=== PATIENT | male | born 1995 | race Caucasian/White ===

== ENCOUNTER 2017-01-13 14:24 | Emergency (ER) | payer BC ==
--- NOTE | ~2017-01-13 | CT2 ---
[facility] A Service of [facility] RADIOLOGY TEXT RESULTS PATIENT: NIKIA EMERY LOCATION: SED : 94 UNIT #: [id number] AGE: [address]: Himanshu Pearce MD SEX: M ORDER DR: [id number] [place] [id number] E MR#: [id number] Acc #: [id number] NAME: NIKIA EMERY. : 1995 SEX: M STUDY DATE/TIME: 01/13/2017 14:40 UNIT: SED ROOM: STUDY DESCRIPTION: CT Abd and Pelv W Cont Attending Physician: Himanshu Pearce M.D. Referring Physician: Himanshu Pearce M.D. Ordering Physician: Himanshu Pearce M.D. Primary Care Physician: Sofía Parsons M.D. MEDICAL IMAGING REPORT This report is preliminary unless electronic signature is present. EXAM CT abdomen and pelvis with IV contrast HISTORY Blood in stool for 10 days. Low abdomen pain. TECHNIQUE This CT exam was performed with one or more of the following radiation dose reduction techniques: automatic control, adjustment of mA and/or kV according to patient size, and iterative reconstruction. FINDINGS CT abdomen and pelvis was performed with IV contrast. CT ABDOMEN: The liver, gallbladder, spleen, pancreas, kidneys, and adrenal glands are normal. No bowel dilatation or displacement. No free fluid or inflammatory stranding. Normal caliber abdominal aorta. CT PELVIS: Normal appendix. No free fluid. No inflammatory changes. Urinary bladder is normal. IMPRESSION 1. Negative CT abdomen and pelvis with IV contrast. 2. No inflammatory changes or free fluid. No bowel dilatation or wall thickening. 3. Normal appendix. Dictated by... Guillermo Siegel M.D. THIS IS AN ELECTRONICALLY VERIFIED REPORT [facility] A Service of [facility] RADIOLOGY TEXT RESULTS PATIENT: NIKIA EMERY LOCATION: SED : 94 UNIT #: [id number] AGE: [address]: Himanshu Pearce MD SEX: M ORDER DR: Guillermo Siegel M.D. at 01/13/2017 11:16 PM DFL/nancy TD: 01/13/2017 16:53 JOB #: [id number] MEDICAL IMAGING REPORT Page 1 of 1
[2017-01-13 14:06] LABS: BASOPHIL% 0.3 % (0-2.5); EOSINOPHIL# 0.2 X10e3 (0-0.7); EOSINOPHIL% 4.3 % (0.0-7.0); HEMATOCRIT 43.8 % (38.0-50.0); HEMOGLOBIN 14.9 gm/dL (13.0-16.0); LYMPHOCYTE# 1.4 X10e3 (1.0-3.5); LYMPHOCYTE% 30.7 % (17.0-45.0); MEAN CELL VOLUME 89.9 FL (83-96); MEAN CORPUSCULAR HEMOGLOBIN 30.6 PG (28-34); MEAN CORPUSCULAR HGB CONC 34.1 g/dL (30-36); MEAN PLATELET VOLUME 9.1 FL (6.5-11.5); MONOCYTE# 0.5 X10e3 (0-1.0); MONOCYTE% 11.6 % (3.0-12.0); NEUTROPHIL# 2.4 X10e3 (1.5-7.1); NEUTROPHIL% 53.1 % (40-75); PLATELET COUNT 180 X10e3 (140-420); RED BLOOD COUNT 4.88 X10e (3.90-5.60); RED CELL DISTRIBUTION WIDTH 12.7 % (11.0-15.5); WHITE BLOOD COUNT 4.5 X10e3 (4.0-10.5)
[2017-01-13 14:07] LABS: DIFF IND NO
[~2017-01-13 14:24] MED LIST: DICLOFENAC; NO MEDICATIONS
[2017-01-13 14:27] LABS: ALBUMIN SERUM 4.2 g/dL (3.5-5.0); BILIRUBIN, DIRECT 0.1 mg/dL (0.0-0.2); BILIRUBIN,TOTAL 1.1 mg/dL (0.2-2.0); BUN/CREATININE RATIO 12.5; CALCIUM SERUM 8.9 mg/dL (8.4-10.2); CREATININE SERUM 1.2 mg/dL (0.6-1.4); GLOM FILT RATE Estimated 85.3 mL/min (>60); PROTEIN TOTAL SERUM 6.9 g/dL (6.0-8.3)
== END 2017-01-13 15:45 | disposition home or self-care (01) ==
LOC: SED 14:24
PROVIDERS: Emergency Medicine
DX: R10.9 Unspecified abdominal pain (principal); K62.5 Hemorrhage of anus and rectum
CPT/HCPCS: 74177; 80048; 80076; 83690; 85025; 96361; 96372; 96374; 96375; 99284; J0500; J2405; Q9967

== ENCOUNTER 2017-01-19 10:23 | Emergency (ER) | payer BC ==
--- NOTE | ~2017-01-19 | CR169 ---
[facility] A Service of [facility] RADIOLOGY TEXT RESULTS PATIENT: NIKIA EMERY LOCATION: SED : 94 UNIT #: [id number] AGE: [address]: Alana Durant APRN SEX: M ORDER DR: [id number] [address] [address] [id number] E MR#: [id number] Acc #: [id number] NAME: NIKIA EMERY. : 1995 SEX: M STUDY DATE/TIME: 01/19/2017 10:32 UNIT: SED ROOM: STUDY DESCRIPTION: CR Knee 2 Views Lt Attending Physician: Alana Durant A.P.R.N. Ordering Physician: Alana Martin A.P.R.N. Primary Care Physician: Primary Care Physician No MEDICAL IMAGING REPORT This report is preliminary unless electronic signature is present. EXAM Left knee 3 views, 01/19/2017 HISTORY Left knee pain and swelling, hyperextended left knee while playing basketball last night. FINDINGS AP and lateral projection of the knee shows smooth articular anatomy without indication of fracture or dislocation at the major weight-bearing surface of the knee. There is no indication of radiopaque foreign body about the knee surface or joint effusion. IMPRESSION Normal left knee. Dictated by... Jairo Cardozo M.D. THIS IS AN ELECTRONICALLY VERIFIED REPORT Jairo Cardozo M.D. at 01/20/2017 8:06 AM MARY/nito TD: 01/19/2017 13:01 JOB #: [id number] MEDICAL IMAGING REPORT Page 1 of 1
== END 2017-01-19 11:26 | disposition home or self-care (01) ==
LOC: SED 10:23
DX: S83.92XA Sprain of unspecified site of left knee, initial encounter (principal); X50.1XXA Overexertion from prolonged static or awkward postures, initial encounter; Y92.39 Other specified sports and athletic area as the place of occurrence of the external cause
CPT/HCPCS: 29505; 73560; 99283

== ENCOUNTER → 2017-01-24 | Outpatient (CLI) | payer BC ==
--- NOTE | ~2017-01-24 | MR103 ---
[facility] A Service of [facility] RADIOLOGY TEXT RESULTS PATIENT: NIKIA EMERY LOCATION: [facility] : [birth year] UNIT #: [id number] AGE: [address]: Sofía Fajardo SEX: M ORDER DR: [id number] [address] [address] [id number] O MR#: [id number] Acc #: [id number] NAME: NIKIA EMERY. : 1995 SEX: M STUDY DATE/TIME: 01/24/2017 14:22 UNIT: [facility] ROOM: STUDY DESCRIPTION: MR Knee Wo Contrast Lt Attending Physician: Sofía Fajardo P.A.-C. Referring Physician: Sofía Fajardo P.A.-C. Ordering Physician: Sofía Fajardo P.A.-C. Primary Care Physician: Sofía Fajardo P.A.-C. MRI CENTER REPORT This report is preliminary unless electronic signature is present. EXAM Left knee MRI without contrast, 01/24/2017. HISTORY 21-year-old male with left knee pain status post injury playing basketball 01/18/2017. Patient states hyperextension injury. Swelling and instability over the last 5 days. No prior left knee surgery COMPARISON Left knee x-rays, 01/19/2017. TECHNIQUE Routine, unenhanced, multiplanar, multisequence, high field MR imaging of the left knee was performed. FINDINGS The medial meniscus appears intact. However, there is some increased signal noted along the periphery of the posterior horn medial meniscus at the meniscocapsular junction. An underlying meniscocapsular injury cannot be excluded. There is also some mild irregularity involving the posterior horn lateral meniscus near the posterior root attachment, concerning for a small vertical radial tear. There is a complete rupture of the proximal third ACL. PCL is intact. There is some mild edema surrounding the medial collateral ligament, which may suggest a low grade MCL sprain. However, no evidence of high-grade MCL rupture. Lateral collateral ligament complex appears intact. Extensor mechanism is intact. There is a moderate hemarthrosis. No popliteal cyst. Patellofemoral articular cartilage is intact. Medial compartment articular cartilage is intact. There are moderate bone contusions [facility] A Service of [facility] RADIOLOGY TEXT RESULTS PATIENT: NIKIA EMERY LOCATION: [facility] : [birth year] UNIT #: [id number] AGE: [address]: Sofía Fajardo SEX: M ORDER DR: involving the posterior lip of the lateral tibial plateau and anterolateral aspect of the lateral femoral condyle. There is mild concavity in the anterolateral aspect of the lateral femoral condyle measuring approximately 2 mm. The pattern of contusion is consistent with pivot-shift injury. Articular cartilage in the lateral compartment appears intact. There is mild bone contusion involving the posterior lip of the medial tibial plateau and far medial aspect of the medial femoral condyle. Remainder of the bone marrow signal is within normal limits for age. Visualized musculature is unremarkable. IMPRESSION 1. Complete rupture of the proximal third ACL. This is associated with pivot-shift contusion injury in the lateral compartment. Please see detailed discussion above. 2. Irregularity involving the posterior horn of the lateral meniscus near the posterior root attachment. This is concerning for a small vertical radial tear. 3. Slightly increased signal noted along the meniscocapsular junction of the posterior horn medial meniscus. This is nonspecific, but meniscocapsular injury is not completely excluded, although no discrete or displaced medial meniscus tear is identified. 4. Mild edema surrounding the medial collateral ligament. This could be secondary to the patient's joint effusion, but a low grade MCL sprain is not excluded in the appropriate clinical setting. No evidence of high-grade MCL disruption. 5. Moderate hemarthrosis. 6. Mild bone contusions involving the posterior lip of the medial tibial plateau and far medial aspect of the medial femoral condyle. 7. No evidence of significant articular cartilage loss. Dictated by... Zack Coyle M.D. THIS IS AN ELECTRONICALLY VERIFIED REPORT Zack Coyle M.D. at 01/25/2017 4:58 PM ANASTASIIA/ok TD: 01/25/2017 10:19 JOB #: [id number] MRI CENTER REPORT Page 1 of 1
== END | disposition home or self-care (01) ==
LOC: SMRI 07:13
DX: S83.92XA Sprain of unspecified site of left knee, initial encounter (principal); S80.02XA Contusion of left knee, initial encounter; M25.062 Hemarthrosis, left knee
CPT/HCPCS: 73721

== ENCOUNTER → 2017-02-10 | Day surgery (SDC) | payer BC ==
--- NOTE | ~2017-02-10 | OR ---
Unit #: [id number] #: [id number] Patient: NIKIA EMERY [id number] [address] [place], [place] [address] [id number] O MR#: [id number] NAME: NIKIA EMERY. ROOM: Date of Procedure: 02/10/2017 Admission Date: 02/10/2017 Surgeon: Darren Hatch Jr., M.D. : 1995 Attending Physician: Darren Hatch Jr., M.D. Primary Care Physician: Sofía Parsons M.D. OPERATIVE REPORT INDICATIONS FOR PROCEDURE The patient is a 21-year-old white male, who has recently had problems with intermittent recurrent rectal bleeding. This usually is bright red rectal bleeding and according to him, he has had off and on for 3 years, but recently is more concerning. He is brought in this time after prep at home for colonoscopy. He understands the procedure including the risks, including that of perforation and bleeding, and consents. PREOPERATIVE DIAGNOSIS Rectal bleeding etiology? POSTOPERATIVE DIAGNOSIS Rectal bleeding etiology? noting no significant irritated hemorrhoids, no evidence of any other sources for bleeding. ANESTHESIA MAC anesthesia. PROCEDURE PERFORMED Flexible colonoscopy to the distal ilium. DESCRIPTION OF PROCEDURE The patient was positioned in Garner position with left side down. After being given MAC anesthesia, digital rectal examination was performed, which revealed no palpable mass or tenderness. No blood or stool in the rectal ampulla. The prostate was normal by palpation. The Olympus colonoscope was advanced through the anal canal up the rectum and retroflexed down to the area of the anorectal region. There was no evidence of any fissures. There were a few small internal hemorrhoids, felt to be of no major significance. These were not actively bleeding. The scope was then backed up and straightened and advanced up in the rectosigmoid and sigmoid areas, where there was no evidence of any abnormalities. The descending colon appeared normal. The scope was then advanced around the splenic flexure and the transverse colon, around hepatic flexure and ascending colon, down in the area of the cecum. The light from the tip of the scope could be seen transilluminating through the right lower quadrant abdominal wall area. The scope was advanced up the distal ileum approximately 10 to 12 inches. There was no evidence of any ileitis or inflammatory bowel disease. The scope was slowly removed. There were no tumors, polyps, cancer, or AVMs. No evidence of any colitis, diverticulosis, or diverticulitis. The caliber of the colon appeared normal throughout. The scope was removed. The patient tolerated Unit #: [id number] #: [id number] Patient: NIKIA EMERY the procedure well and discharged in satisfactory condition. Dictated by... Darren Hatch Jr., MKalee. CLAUDIA/miles TD: 02/11/2017 01:11 JOB #: [id number] OPERATIVE REPORT Page 1 of 1 X Darren Hatch MD X PROCEDURE OPERATIVE NOTE
== END | disposition home or self-care (01) ==
LOC: COPS 11:20
DX: K64.8 Other hemorrhoids (principal); K62.5 Hemorrhage of anus and rectum
CPT/HCPCS: J2250

== ENCOUNTER 2017-02-28 18:53 | Emergency (ER) | payer BC ==
--- NOTE | ~2017-02-28 | CR169 ---
[facility] A Service of [facility] RADIOLOGY TEXT RESULTS PATIENT: NIKIA EMERY LOCATION: [facility] : [birth year] UNIT #: [id number] AGE: [address]: Nate Austin MD SEX: M ORDER DR: [id number] [facility] [address] [facility] [place] [facility]. [place], [place] [address] [id number] E MR#: [id number] Acc #: [id number] NAME: NIKIA EMERY. : 1995 SEX: M STUDY DATE/TIME: 02/28/2017 19:32 UNIT: KIAN ROOM: STUDY DESCRIPTION: CR Knee 2 Views Lt Attending Physician: Nate Austin M.D. Ordering Physician: Nate Austin M.D. Primary Care Physician: Sofía Fajardo P.A.-[place] MEDICAL IMAGING REPORT This report is preliminary unless electronic signature is present EXAM Left knee 02/28/2017 HISTORY A 21-year-old male with left knee pain and swelling for 4 days. History of recent knee surgery. No new injury. COMPARISON STUDIES Left knee 02/21/2017. FINDINGS 2 views of the left knee demonstrate no evidence of acute fracture or dislocation. Trace joint effusion. There are postsurgical changes from ACL reconstruction. There also suspected postsurgical changes involving the patellar tendon. Correlation with operative history recommended. Soft tissues are otherwise unremarkable. No soft tissue gas. IMPRESSION Postoperative changes from ACL reconstruction and suspected of patellar tendon repair. Correlation with operative history recommended. No soft tissue gas. Trace joint effusion. No acute bony abnormality. Dictated by... Zack Coyle M.D. THIS IS AN ELECTRONICALLY VERIFIED REPORT Zack Coyle M.D. at 03/01/2017 9:06 AM ANASTASIIA/andrés TD: 02/28/2017 23:24 JOB #: [id number] [facility] A Service of [facility] RADIOLOGY TEXT RESULTS PATIENT: NIKIA EMERY LOCATION: [facility] : [birth year] UNIT #: [id number] AGE: [address]: Nate Austin MD SEX: M ORDER DR: MEDICAL IMAGING REPORT Page 1 of 1 COPY
--- NOTE | ~2017-02-28 | US85 ---
[facility] A Service of [facility] RADIOLOGY TEXT RESULTS PATIENT: NIKIA EMERY LOCATION: [facility] : [birth year] UNIT #: [id number] AGE: [address]: Nate Austin MD SEX: M ORDER DR: [id number] [facility] [address] [place], [place] [address] [id number] E MR#: [id number] Acc #: [id number] NAME: NIKIA EMERY. : 1995 SEX: M STUDY DATE/TIME: 02/28/2017 20:17 UNIT: KIAN ROOM: STUDY DESCRIPTION: [employer] [facility] [employer] [facility] Attending Physician: Nate Austin M.D. Ordering Physician: Nate Austin M.D. Primary Care Physician: Sofía Fajardo P.A.-C. MEDICAL IMAGING REPORT This report is preliminary unless electronic signature is present EXAM Left lower extremity venous ultrasound, 02/28/2017 HISTORY Pain. Recent ACL surgery 2 weeks ago. Left lower extremity pain x2 days. FINDINGS Real-time ultrasonography of the left lower extremity performed. Ca-scale, color Doppler, Doppler pulse wave interrogation utilized. Left common femoral vein, femoral vein, profunda femoris vein, popliteal vein, posterior tibial, anterior tibial and peroneal veins are patent with normal compressibility and normal color Doppler interrogation demonstrating wvhl-bo-lnnf flow. The left gastrocnemius vein is abnormally distended, contains heterogeneous hypoechoic material and is noncompressible. This is consistent with deep venous thrombosis in the left gastrocnemius vein. The left great saphenous vein is patent. IMPRESSION The examination is positive for DVT in the left gastrocnemius vein. The DVT is occlusive in the visualized left gastrocnemius vein. No other areas of left lower extremity DVT. No left lower extremity superficial venous thrombosis. Dictated by... Tony Solorzano M.D. THIS IS AN ELECTRONICALLY VERIFIED REPORT Tony Solorzano M.D. at 03/01/2017 2:21 PM SANKET/marge TD: 03/01/2017 00:01 [facility] A Service of [facility] RADIOLOGY TEXT RESULTS PATIENT: NIKIA EMERY LOCATION: [facility] #: [id number] : [birth year] UNIT #: [id number] AGE: [address]: Nate Austin MD SEX: M ORDER DR: JOB #: [id number] MEDICAL IMAGING REPORT Page 1 of 1 COPY
== END 2017-02-28 22:06 | disposition home or self-care (01) ==
LOC: CED 18:53
DX: I80.202 Phlebitis and thrombophlebitis of unspecified deep vessels of left lower extremity (principal); Z98.890 Other specified postprocedural states
CPT/HCPCS: 73560; 93971; 99284